=== PATIENT | male | born 1950 | race Caucasian/White ===

== ENCOUNTER 2018-06-17 05:52 | Emergency (ER) | payer OTHER ==
[~2018-06-17] VITALS: Ht 167.6 cm; Wt 72.7 kg
[2018-06-17 05:55] VITALS: Ht 167.6 cm; Wt 72.7 kg
[2018-06-17] MEDS ORDERED: SOD CHLORIDE 0.9% 1,000 ML IV STA (06:20)
[2018-06-17] MEDS ORDERED: KETOROLAC 15 MG INJ IV STA (06:20)
--- NOTE | 2018-06-17 06:29 | ERD ---
ER Documentation Chief Complaint Chief Complaint YESICA VELA,from home,c/o L CWP & L lower back r/t lifting furnitures yesterd HPI 68-year-old man complains of left anterolateral chest wall pain worse with movement times 2 days after lifting and moving some heavy furniture and boxes around the house. He states pain precipitated by movement but denies cough, no shortness of breath, no fevers or chills, no exertional pain ROS All systems reviewed and are negative except as per history of present illness. Medications Home Meds Active Scripts Naproxen* (Naprosyn*) 500 Mg Tablet, 500 MG PO BID PRN for PAIN AND/OR INFLAMMATION, #30 TAB Prov:FISH FOX MD 06/17/18 Reported Medications Olanzapine* (Zyprexa*) 10 Mg Tablet, 10 MG PO DAILY, #30 TAB 06/17/18 Amlodipine Besylate* (Norvasc*) 5 Mg Tablet, 5 MG PO DAILY, TAB 06/17/18 Benazepril Hcl* (Benazepril Hcl*) 20 Mg Tablet, 20 MG PO DAILY, #30 TAB 06/17/18 Atenolol* (Atenolol*) 25 Mg Tablet, 25 MG PO DAILY, #30 TAB 06/17/18 Divalproex Sodium* (Depakote*) 125 Mg Tablet.dr, 250 MG PO TID, #90 TAB 06/17/18 Allergies Allergies: Coded Allergies: No Known Drug Allergy (Verified Allergy, Unknown, 06/17/18) PMhx/Soc Hypertension Hx Cardiac Disorders: Yes (HTN) Hx Psychiatric Problems: Yes (BIPOLAR) Hx Alcohol Use: Yes Hx Substance Use: Yes (marijuana) Hx Tobacco Use: Yes Smoking Status: Current every day smoker FmHx Family History: No diabetes Physical Exam Vitals Vital Signs Date Temp Pulse Resp B/P (MAP) Pulse Ox O2 O2 Flow FiO2 Time Delivery Rate 06/17/18 Nasal 1 05:59 Cannula 06/17/18 98.2 73 18 219/98 96 05:55 (138) Physical Exam GENERAL: Well-developed, well-nourished, well-hydrated, in no apparent distress, looks nontoxic in appearance NEURO: Alert and oriented 3, cranial nerves II through XII intact bilaterally, pupils equal round reactive to light, no focal deficits or facial asymmetry, se nsation intact distally Strength 5/5 in upper and lower extremities bilaterally CARDIAC: Regular rate and rhythm, no murmurs rubs or gallops LUNGS: Clear bilaterally no wheezing crackles or stridor ABDOMEN: Soft nontender, no guarding, no rigidity, no rebound, mild soft tissue tenderness over the left lateral anterior costal margin SKIN: Warm and dry to touch, no abrasions, contusions, or hematomas, no lacerations, no ecchymosis, no target lesions, and without ulcers EXTREMITIES: No clubbing cyanosis or edema, calves are bilaterally symmetrical, no Homans sign, no popliteal cord sign. Distal pulses equal and bilateral PSYCH: Normal affect without agitation or irritability Result Diagram: 06/17/1861406/17/18614 Results 24 hrs Laboratory Tests Test 06/17/18 06:15 White Blood Count 10.6 10^3/ul Red Blood Count 4.88 10^6/ul Hemoglobin 14.9 g/dl Hematocrit 45.1 % Mean Corpuscular Volume 92.4 fl Mean Corpuscular Hemoglobin 30.5 pg Mean Corpuscular Hemoglobin Concent 33.0 g/dl Red Cell Distribution Width 14.2 % Platelet Count 321 10^3/UL Mean Platelet Volume 8.8 fl Immature Granulocytes % 0.900 % Neutrophils % 75.9 % Lymphocytes % 14.7 % Monocytes % 7.8 % Eosinophils % 0.3 % Basophils % 0.4 % Nucleated Red Blood Cells % 0.0 /100WBC Immature Granulocytes # 0.090 10^3/ul Neutrophils # 8.0 10^3/ul Lymphocytes # 1.6 10^3/ul Monocytes # 0.8 10^3/ul Eosinophils # 0.0 10^3/ul Basophils # 0.0 10^3/ul Nucleated Red Blood Cells # 0.0 10^3/ul Sodium Level 142 mmol/L Potassium Level 3.8 mmol/L Chloride Level 103 mmol/L Carbon Dioxide Level 30 mmol/L Anion Gap 9 Blood Urea Nitrogen 15 mg/dl Creatinine 0.79 mg/dl Est Glomerular Filtrat Rate mL/min > 60 mL/min Glucose Level 116 mg/dl Calcium Level 9.8 mg/dl Total Bilirubin 0.3 mg/dl Direct Bilirubin 0.00 mg/dl Indirect Bilirubin 0.3 mg/dl Aspartate Amino Transf (AST/SGOT) 32 IU/L Alanine Aminotransferase (ALT/SGPT) 19 IU/L Alkaline Phosphatase 96 IU/L Troponin I < 0.012 ng/ml Total Protein 8.0 g/dl Albumin 4.2 g/dl Lipase 43 U/L Current Medications Medications Dose Sig/Ellis Start Time Status Last (Trade) Ordered Route PRN Stop Time Admin Dose Reason Admin Sodium 1,000 ml @ Q1H STAT 06/17/18 DC 06/17/18 Chloride 1,000 mls/hr IV 06:20 06:49 06/17/18 07:19 Ketorolac 15 mg ONCE STAT 06/17/18 DC 06/17/18 Tromethamine IV 06:20 06:50 (Toradol) 06/17/18 06:22 Procedures/[facility] IV line was established patient was placed on night monitor rhythm strip revealed a sinus rhythm at about 80 bpm with upright P and T waves. Patient was afebrile EKG performed, read by me: 75 bpm, normal sinus rhythm, normal axis, no acute ST segment changes, narrow QRS complex, with good R-wave progression in precordial leads. One AP view of the chest performed, read by me reveals no acute infiltrates, normal mediastinum, sharp costophrenic and cardiac borders, no air under the diaphragm. Otherwise unremarkable chest x-ray. I administered 1 L normal saline IV and Toradol 15 mg IV x1 CBC and electrolytes are normal, liver function tests were normal, troponin was negative. Patient's pain has improved and vital signs remained normal. He has no abdominal tenderness to touch and tenderness over the chest wall has improved after analgesics. I have no indication for any further intervention, imaging, or admission and he will be discharged to follow-up with PMD although I did tell him to return if he develops shortness of breath, fever, or worsening pain. Differential diagnoses considered, included but not limited to acute coronary syndrome, pulmonary embolism, aortic dissection, abdominal aortic aneurysm, sepsis, stroke, meningitis, encephalitis, pneumonia, appendicitis, cholecystitis, bowel obstruction, pyelonephritis, nephrolithiasis, cystitis, as well as metabolic, hematologic, and electrolyte abnormalities. As well as abscess, cellulitis, fractures, and dislocations. Patient feels much better at this time, and vital signs are normal, symptoms have improved. I did give strict instructions to return to the ED if symptoms continue or worsen, patient will otherwise follow-up with primary care physician. Patient understood instructions and agreed to plan. Disclaimer: Inadvertent spelling and grammatical errors are likely due to EHR/dictation software use and do not reflect on the overall quality of patient care. Also, please note that the electronic time recorded on this note does not necessarily reflect the actual time of the patient encounter. Departure Diagnosis: Primary Impression: Chest wall pain Condition: Good FISH FOX MD Jun 17, 2018 06:29
[2018-06-17] MEDS ORDERED: AMLO5TAB4 PO (07:18)
[2018-06-17] MEDS ORDERED: BENA20TA4 PO (07:18)
[2018-06-17] MEDS ORDERED: DIVA125T PO (07:18)
[2018-06-17] MEDS ORDERED: ATEN-51 PO (07:18)
[2018-06-17] MEDS ORDERED: OLAN10TA7 PO (07:19)
[2018-06-17] MEDS ORDERED: NAPR-985 PO (07:24)
[2018-06-17 08:38] VITALS: BP 153/90; PULSE 64; RESP 18
== END 2018-06-17 08:38 | disposition home or self-care (01) ==
LOC: E/R 05:52
DX: R07.89 Other chest pain (principal); F17.210 Nicotine dependence, cigarettes, uncomplicated; I10 Essential (primary) hypertension
CPT/HCPCS: 36415; 71045; 80048; 80076; 83690; 84484; 85025; 93005; 96361; 96374; 99285; J1885; J7030